=== PATIENT | female | born 1995 | race Caucasian/White ===

== ENCOUNTER 2016-12-14 01:01 | Emergency (ER) | payer OTHER ==
[2016-12-14] MEDS ORDERED: Ibuprofen TAB* 600 MG PO ONE (02:45)
--- NOTE | 2016-12-14 03:46 | ED ---
Alexander Bryant Adam, scribed for Lebron Pinto on 12/14/16 at 0239 . Lower Extremity - HPI Summary HPI Summary: Pt is a 21 year old female presenting with an ankle injury. She was dancing at a [employer] about 1 hour [employer] when she rolled her right ankle. She presents with pain and swelling of the lateral aspect of the right ankle. She states that she had 6 shots of vodka prior to the injury. - History of Current Complaint Chief Complaint: EDExtremityLower Stated Complaint: RT ANKLE INJURY Hx Obtained From: Patient Mechanism Of Injury: Fall From A Standing Position Onset of Pain: Immediate Onset/Duration: Hours Severity Initially: Moderate Severity Currently: Moderate Pain Intensity: 7 Pain Scale Used: 0-10 Numeric Timing: Constant Location: Is Discrete @ - Right ankle Associated Signs And Symptoms: Positive: Swelling Aggravating Factor(s): Movement, Weight Bearing Alleviating Factor(s): Nothing - Allergies/Home Medications Allergies/Adverse Reactions: Allergies Allergy/AdvReac Type Severity Reaction Status Date / Time No Known Allergies Allergy Verified 12/14/16 01:05 PMH/Surg Hx/FS Hx/Imm Hx Previously Healthy: Yes Infectious Disease History: No Infectious Disease History: Denies: Traveled Outside the [place] in Last 30 Days - Family History Known Family History: Positive: None - R and n/c - Social History Occupation: Student Lives: Alone Alcohol Use: Weekly Hx Substance Use: No Substance Use Type: Reports: None Hx Tobacco Use: No Smoking Status (MU): Never Smoked Tobacco Review of Systems Negative: Fever Positive: Arthralgia - Right ankle, Edema - Right ankle Skin: Negative All Other Systems Reviewed And Are Negative: Yes Physical Exam Triage Information Reviewed: Yes Vital Signs On Initial Exam: Initial Vitals Temp Pulse Resp BP Pulse Ox 99 F 105 18 145/69 100 12/14/16 01:03 12/14/16 01:03 12/14/16 01:03 12/14/16 01:03 12/14/16 01:03 Vital Signs Reviewed: Yes Appearance: Positive: Well-Appearing, No Pain Distress Skin: Positive: Warm, Skin Color Reflects Adequate Perfusion, Dry Head/Face: Positive: Normal Head/Face Inspection Eyes: Positive: EOMI, CHRISTIAN ENT: Positive: Normal ENT inspection Neck: Positive: Supple, Nontender Respiratory/Lung Sounds: Positive: Clear to Auscultation, Breath Sounds Present Cardiovascular: Positive: RRR, Pulses are Symmetrical in both Upper and Lower Extremities Abdomen Description: Positive: Nontender, Soft Bowel Sounds: Positive: Present Musculoskeletal: Positive: Other - Mild swelling of the lateral aspect of the right ankle. No neurovascular deficits. Diagnostics - Vital Signs Vital Signs Temp Pulse Resp BP Pulse Ox 12/14/16 01:05 99 F 105 18 145/69 100 12/14/16 01:03 99 F 105 18 145/69 100 - Laboratory Lab Statement: Any lab studies that have been ordered have been reviewed, and results considered in the medical decision making process. - Radiology ANKLE XR Radiology Interpretation Completed By: ED Physician - No fracture visualized. Lower Extremity Course/Dx - Diagnoses Provider Diagnoses: Ankle sprain Discharge - Discharge Plan Condition: Stable Disposition: HOME Patient Education Materials: Ankle Sprain (ED) Referrals: [facility] @ [Outside] Ranulfo Platt MD [Medical Doctor] - Additional Instructions: Follow up with Dr. Platt (Ortho). No fracture was visualized on the X-Ray by the ER Physician. The radiologist will read the X-Ray later today and we will notify you if anything different is seen. The documentation as recorded by the Alexander barrientos Adam accurately reflects the service I personally performed and the decisions made by , Lebron Pinto.
[2016-12-14 04:37] VITALS: BP 128/83
--- NOTE | 2016-12-14 10:43 | RAD ---
Indication: Right ankle injury. 3 views of the right ankle demonstrates no fracture. No other bone or joint abnormality is noted. IMPRESSION: No fracture of the right ankle is noted.
== END 2016-12-14 04:35 | disposition home or self-care (01) ==
LOC: ED 01:01
DX: S93.401A Sprain of unspecified ligament of right ankle, initial encounter (principal); X50.9XXA Other and unspecified overexertion or strenuous movements or postures, initial encounter; Y93.41 Activity, dancing; Y92.9 Unspecified place or not applicable
CPT/HCPCS: 99282; A9270-GY